=== PATIENT | female | born 1995 | race Caucasian/White ===

== ENCOUNTER 2021-12-06 01:39 | Observation (INO) | payer BC ==
[2021-12-07] MEDS ORDERED: Ondansetron PF 4 MG/2 ML Vial IVP PRN (05:08)
[2021-12-07] MEDS ORDERED: Ondansetron ODT 4 MG TAB PO PRN (05:08)
[2021-12-07] MEDS ORDERED: Acetaminophen 325 MG TAB PO PRN (05:08)
[2021-12-07] MEDS ORDERED: Acetaminophen 650 MG Suppository PR PRN (05:08)
[2021-12-07 05:49] VITALS: BMI 34.7
[2021-12-07] MEDS ORDERED: Azithromycin 500 MG in Sodium Chloride 0.9% 250 ML 250 ML IVPB SCH (08:00)
[2021-12-07 09:12] VITALS: TEMP 99.4
[2021-12-07] MEDS ORDERED: Magnevist 469MG/ML 20 ML VIAL ONE (12:27)
[2021-12-07 13:01] VITALS: BP 118/68
== END 2021-12-07 16:51 | disposition home or self-care (01) ==
LOC: NEURO 12-07 03:47 → INTOOBSV 12-07 03:47
PROVIDERS: ADMIT Student in an Organized Health Care Education/Training Program; ATTEND Internal Medicine
DX: J18.9 Pneumonia, unspecified organism (principal); G93.40 Encephalopathy, unspecified; G37.9 Demyelinating disease of central nervous system, unspecified; J45.909 Unspecified asthma, uncomplicated; G62.9 Polyneuropathy, unspecified; Z79.899 Other long term (current) drug therapy; Z91.018 Allergy to other foods; Z20.822 Contact with and (suspected) exposure to COVID-19
CPT/HCPCS: 70553; 95816; 95819; 95957; 96374; A9579; G0378; J0456; J7050